=== PATIENT | male | born 1935 | race Asian ===

== ENCOUNTER 2017-10-18 14:08 | Emergency (ER) | payer MEDICARE, MEDICAID ==
[~2017-10-18] VITALS: Ht 147.3 cm; Wt 47.6 kg
[~2017-10-18 14:08] MED LIST: PANT40SU2 PO
[2017-10-18 14:49] LABS: BASOPHILS % (AUTO) 0.2 % (0-1); EOSINOPHILS % (AUTO) 1.4 % (0-6); HEMATOCRIT 38.3 % (42.0-52.0); HEMOGLOBIN 12.8 g/dl (14.0-17.9); LYMPHOCYTES % (AUTO) 27.1 % (21-51); MEAN CORPUSCULAR HEMOGLOBIN 25.2 PG (27.0-31.0); MEAN CORPUSCULAR HGB CONC 33.3 % (33.0-36.5); MEAN CORPUSCULAR VOLUME 75.6 FL (78-98); MEAN PLATELET VOLUME 8.6 FL (7.4-10.4); MONOCYTES # (AUTO) 0.4 X10'3 (0-0.9); MONOCYTES % (AUTO) 10.8 % (2-12); NEUTROPHILS # (AUTO) 2.2 X10'3 (1.8-7.7); NEUTROPHILS % (AUTO) 60.5 % (42-75); PLATELET COUNT 179 X10'3 (140-440); RED BLOOD COUNT 5.07 X10'6 (4.70-6.10); RED CELL DISTRIBUTION WIDTH 16.4 % (11.5-14.5); WHITE BLOOD COUNT 3.7 X10'3 (4.5-11.0)
[2017-10-18 14:57] LABS: PROTHROMBIN TIME 10.7 SECONDS (9.0-12.0)
[2017-10-18 15:11] LABS: ALANINE AMINOTRANSFERASE 29 U/L (12-78); ALBUMIN 3.8 G/DL (3.4-5.0); ALBUMIN/GLOBULIN RATIO 0.9 (1.1-1.5); ALKALINE PHOSPHATASE 89 IU/L (46-116); ANION GAP 8 (8-16); ASPARTATE AMINO TRANSFERASE 30 U/L (10-37); BILIRUBIN,TOTAL 0.9 MG/DL (0.1-1.0); BLOOD UREA NITROGEN 18 MG/DL (7-18); BUN/CREATININE RATIO 15.1 (5.4-32.0); CHLORIDE 107 MMOL/L (99-107); CREATININE 1.19 MG/DL (0.60-1.10); GLUCOSE 116 MG/DL (70-104); POTASSIUM 3.7 MMOL/L (3.5-5.1); SODIUM 143 MMOL/L (135-145); TOTAL CARBON DIOXIDE 27.8 MMOL/L (24-32); TOTAL PROTEIN 7.9 G/DL (6.4-8.2); eGFR 58 ML/MIN
[2017-10-18 15:56] LABS: LIPASE 232 U/L (73-393)
[2017-10-18 18:58] VITALS: BP 108/74
== END 2017-10-18 19:02 | disposition home or self-care (01) ==
LOC: ER 14:08
DX: K80.80 Other cholelithiasis without obstruction (principal)
CPT/HCPCS: 36415; 71046; 74176; 76700; 80053; 83605; 83690; 85025; 85610; 93005; 99285

== ENCOUNTER 2018-05-11 11:25 | Emergency (ER) | payer MEDICARE, MEDICAID ==
[~2018-05-11] VITALS: Ht 157.5 cm; Wt 52.3 kg
[2018-05-11] MEDS ORDERED: normal saline 1000ml 1,000 ML IV ONE (13:40)
[2018-05-11] MEDS ORDERED: ondansetron/PF 4mg/2ml inj IV ONE (13:40)
[2018-05-11 14:06] LABS: BASOPHILS % (AUTO) 0.4 % (0-1); EOSINOPHILS # (AUTO) 0.1 X10'3 (0-0.9); EOSINOPHILS % (AUTO) 1.4 % (0-6); HEMATOCRIT 34.5 % (42.0-52.0); HEMOGLOBIN 11.1 g/dl (14.0-17.9); LYMPHOCYTES % (AUTO) 26.1 % (21-51); MEAN CORPUSCULAR HEMOGLOBIN 23.8 PG (27.0-31.0); MEAN CORPUSCULAR HGB CONC 32.1 % (33.0-36.5); MEAN CORPUSCULAR VOLUME 74.1 FL (78-98); MEAN PLATELET VOLUME 8.3 FL (7.4-10.4); MONOCYTES # (AUTO) 0.4 X10'3 (0-0.9); NEUTROPHILS # (AUTO) 2.3 X10'3 (1.8-7.7); NEUTROPHILS % (AUTO) 61.1 % (42-75); PLATELET COUNT 166 X10'3 (140-440); RED BLOOD COUNT 4.66 X10'6 (4.70-6.10); RED CELL DISTRIBUTION WIDTH 17.1 % (11.5-14.5); WHITE BLOOD COUNT 3.8 X10'3 (4.5-11.0)
[2018-05-11 14:23] LABS: ALANINE AMINOTRANSFERASE 18 U/L (12-78); ALBUMIN 3.1 G/DL (3.4-5.0); ALBUMIN/GLOBULIN RATIO 0.9 (1.1-1.5); ALKALINE PHOSPHATASE 82 IU/L (46-116); ANION GAP 4 (8-16); ASPARTATE AMINO TRANSFERASE 25 U/L (10-37); BILIRUBIN,TOTAL 0.9 MG/DL (0.1-1.0); BLOOD UREA NITROGEN 15 MG/DL (7-18); BUN/CREATININE RATIO 16.3 (5.4-32.0); CALCIUM 8.6 MG/DL (8.5-10.1); CHLORIDE 109 MMOL/L (99-107); CREATININE 0.92 MG/DL (0.60-1.10); GLUCOSE 72 MG/DL (70-104); SODIUM 142 MMOL/L (135-145); TOTAL CARBON DIOXIDE 29.3 MMOL/L (24-32); TOTAL PROTEIN 6.7 G/DL (6.4-8.2); eGFR 78 ML/MIN
[2018-05-11 14:27] LABS: LIPASE 208 U/L (73-393); TROPONIN I 0.04 NG/ML (0.0-0.05)
[2018-05-11 14:51] LABS: CLARITY,URINE CLEAR (Clear); COLOR,URINE STRAW (Yellow); GLUCOSE, URINE NEGATIVE (Neg); KETONES,URINE NEGATIVE (Neg); LEUKOCYTE ESTERASE ,URINE NEGATIVE (Neg); NITRITES, URINE NEGATIVE (Neg); OCCULT BLOOD,URINE NEGATIVE (Neg); PH,URINE 5.5 (4.8-8.0); PROTEIN,URINE NEGATIVE (Neg); UROBILINOGEN,URINE 0.2 E.U/dL (0.2-1.0)
[2018-05-11 14:56] LABS: UA COLLECTION TYPE CLN CATCH MIDSTREAM
[2018-05-11] MEDS ORDERED: ketorolac trometh. 30mg/ml inj. IV ONE (15:10)
[2018-05-11] MEDS ORDERED: ACET-2615 PO (15:14)
[2018-05-11] MEDS ORDERED: ONDA8TAB9 PO (15:14)
[2018-05-11] MEDS ORDERED: acetaminophen 325mg tablet PO ONE (15:15)
[2018-05-11 16:18] VITALS: BP 139/86
== END 2018-05-11 16:21 | disposition home or self-care (01) ==
LOC: ER 11:25
DX: R11.10 Vomiting, unspecified (principal); Z79.899 Other long term (current) drug therapy
CPT/HCPCS: 36415; 71045; 80053; 81003; 83605; 83690; 84484; 85025; 87040; 93005; 96361; 96374; 96375; 99285; J1885; J2405; J7030

== ENCOUNTER 2021-08-14 10:09 | Emergency (ER) | payer MEDICARE, MEDICAID ==
[~2021-08-14] VITALS: Ht 144.8 cm; Wt 40.0 kg
[~2021-08-14 10:09] MED LIST changes: +ONDA8TAB9 PO
[2021-08-14 11:21] VITALS: BP 126/80
--- NOTE | 2021-08-14 11:48 | NUR ---
ABLE TO OBTAIN MORE INFORMATION FROM FRIEND WHO WAS ABLE TO INTERPRET. PT C/O OF BACK PAIN AND COUGH.
== END 2021-08-14 12:40 | disposition home or self-care (01) ==
LOC: ER 10:10
DX: Z13.89 Encounter for screening for other disorder (principal); R05.9 Cough, unspecified; Z98.890 Other specified postprocedural states; Z79.899 Other long term (current) drug therapy
CPT/HCPCS: 71045; 99283

== ENCOUNTER 2021-11-12 15:27 | Emergency (ER) | payer MEDICARE, MEDICAID ==
[~2021-11-12] VITALS: Ht 137.2 cm; Wt 46.0 kg
[~2021-11-12 15:27] MED LIST changes: +APIX5TAB3 PO; -ONDA8TAB9 PO; -PANT40SU2 PO
--- NOTE | 2021-11-12 16:08 | NUR ---
TC TO DAUGHTER, DIAN, TO INFORM HER THAT HER PARENTS ARE HERE IN THE ER AND TO ATTEMPT TO GET MORE INFORMATION FROM HER, DUE TO THE FACT THAT HER PARENTS ARE MUTE, NON-VERBAL, NON-JAPANESE SPEAKING. MESSAGE LEFT FOR DAUGHTER TO CALL ER.
[2021-11-12] MEDS ORDERED: acetaminophen 325mg tablet PO ONE (16:15)
[2021-11-12 16:40] VITALS: BP 124/79
== END 2021-11-12 16:55 | disposition home or self-care (01) ==
LOC: ER 15:28
DX: G89.29 Other chronic pain (principal); M54.9 Dorsalgia, unspecified
CPT/HCPCS: 72070; 99283

== ENCOUNTER 2022-04-01 11:14 | Emergency (ER) | payer MEDICARE, MEDICAID ==
[~2022-04-01] VITALS: Ht 142.2 cm; Wt 46.0 kg
[2022-04-01 11:38] VITALS: BP 132/84
[2022-04-01] MEDS ORDERED: acetaminophen 325mg tablet PO ONE (12:05)
--- NOTE | 2022-04-01 13:15 | NUR ---
PT NON-VERBAL, PT USES OWN FOR OF SIGN LANGUAGE. LANGUAGE UNKNOWN. PT DAUGHTER CONTACTED MULTIPLE ATTEMPTS MADE. LEFT DAUGHTER VOICEMAIL TO RELAY DC INSTRUCTIONS.
--- NOTE | 2022-04-01 14:15 | NUR ---
PTS DAUGHTER DIAN CONTACTED AND SAID SHE WAS UNAVAILABLE. PTS DAUGHTER INFORMED TO ANSWER PHONE REGARDING DC EDUCATION PAPERWORK. DAUGHTER DID NOT ANSWER PHONE.
--- NOTE | 2022-04-01 14:28 | NUR ---
PTS DAUGHTER CONTACTED, AND RECEIVED DC EDUCATION. PTS DAUGHTER VERBALIZED UNDERSTANDING OF DC EDUCATION.
== END 2022-04-01 14:21 | disposition home or self-care (01) ==
LOC: ER 11:15
DX: M54.50 Low back pain, unspecified (principal)
CPT/HCPCS: 99282

== ENCOUNTER 2022-05-31 12:14 | Emergency (ER) | payer MEDICARE, MEDICAID ==
[~2022-05-31] VITALS: Ht 157.5 cm; Wt 48.0 kg
[2022-05-31 13:10] VITALS: BP 115/77
[2022-05-31] MEDS ORDERED: ondansetron 4mg rapidly disintigrating tab PO ONE (14:15)
[2022-05-31 15:12] LABS: BASOPHILS % (AUTO) 0.4 % (0-1); EOSINOPHILS # (AUTO) 0.1 X10'3 (0-0.9); EOSINOPHILS % (AUTO) 3.1 % (0-6); HEMATOCRIT 40.1 % (42.0-52.0); HEMOGLOBIN 12.8 g/dl (14.0-17.9); LYMPHOCYTES # (AUTO) 0.9 X10'3 (1.1-4.8); MEAN CORPUSCULAR HEMOGLOBIN 26.3 PG (27.0-31.0); MEAN CORPUSCULAR VOLUME 82.1 FL (78-98); MEAN PLATELET VOLUME 8.4 FL (7.4-10.4); MONOCYTES # (AUTO) 0.6 X10'3 (0-0.9); MONOCYTES % (AUTO) 14.9 % (2-12); NEUTROPHILS # (AUTO) 2.3 X10'3 (1.8-7.7); NEUTROPHILS % (AUTO) 58.6 % (42-75); PLATELET COUNT 147 X10'3 (140-440); RED BLOOD COUNT 4.88 X10'6 (4.70-6.10); WHITE BLOOD COUNT 3.8 X10'3 (4.5-11.0)
[2022-05-31 15:35] LABS: ALANINE AMINOTRANSFERASE 14 U/L (12-78); ALBUMIN 3.3 G/DL (3.4-5.0); ALKALINE PHOSPHATASE 90 IU/L (46-116); ANION GAP 5 (8-16); ASPARTATE AMINO TRANSFERASE 24 U/L (10-37); BILIRUBIN,TOTAL 0.8 MG/DL (0.1-1.0); BLOOD UREA NITROGEN 21 MG/DL (7-18); BUN/CREATININE RATIO 22.1 (5.4-32.0); CHLORIDE 108 MMOL/L (99-107); CREATININE 0.95 MG/DL (0.60-1.10); GLUCOSE 91 MG/DL (70-104); POTASSIUM 3.8 MMOL/L (3.5-5.1); SODIUM 143 MMOL/L (135-145); TOTAL CARBON DIOXIDE 30.5 MMOL/L (24-32); eGFR 75 ML/MIN
[2022-05-31 15:53] LABS: ALBUMIN/GLOBULIN RATIO 0.8 (1.1-1.5); TOTAL PROTEIN 7.5 G/DL (6.4-8.2)
[2022-05-31 16:00] LABS: CLARITY,URINE CLEAR (Clear); COLOR,URINE YELLOW (Yellow); GLUCOSE, URINE NEGATIVE (Neg); KETONES,URINE NEGATIVE (Neg); LEUKOCYTE ESTERASE ,URINE NEGATIVE (Neg); NITRITES, URINE NEGATIVE (Neg); OCCULT BLOOD,URINE LARGE (Neg); PH,URINE 5.5 (4.8-8.0); PROTEIN,URINE 100 mg/dl (Neg)
[2022-05-31 16:11] LABS: UA COLLECTION TYPE CLN CATCH MIDSTREAM
[2022-05-31 16:27] LABS: BACTERIA,URINE FEW /HPF (Neg); WBC,URINE 0-4 /HPF (0-4)
[2022-05-31 16:28] LABS: MUCUS STRANDS MODERATE /LPF (Neg); SQUAMOUS EPITHELIAL CELL,UR NONE SEEN /LPF (FEW)
[2022-05-31] MEDS ORDERED: ONDA4TAB12 PO (17:31)
== END 2022-05-31 17:49 | disposition home or self-care (01) ==
LOC: ER 12:16
DX: S22.080A Wedge compression fracture of T11-T12 vertebra, initial encounter for closed fracture (principal); Z20.822 Contact with and (suspected) exposure to COVID-19; R31.9 Hematuria, unspecified; M54.6 Pain in thoracic spine; G89.29 Other chronic pain; R11.10 Vomiting, unspecified; Z79.899 Other long term (current) drug therapy; W19.XXXA Unspecified fall, initial encounter; Y93.89 Activity, other specified; Y92.89 Other specified places as the place of occurrence of the external cause; Y99.8 Other external cause status
CPT/HCPCS: 36415; 71045; 72074; 72100; 72128; 72131; 80053; 81001; 85025; 87635; 99285; C9803